=== PATIENT | male | born 1970 | race Two or more races ===

== ENCOUNTER 2019-12-17 08:56 | Outpatient (CLI) | payer OTHER | END 2019-12-17 09:06 | disposition home or self-care (01) | LOC: RAD 08:56 | PROVIDERS: ATTEND Orthopaedic Surgery | DX: M25.561 Pain in right knee (principal); M25.562 Pain in left knee ==

== ENCOUNTER 2020-01-13 10:47 | Outpatient (CLI) | payer OTHER | END 2020-01-13 11:13 | disposition home or self-care (01) | LOC: MRI 10:47 | PROVIDERS: ATTEND Orthopaedic Surgery | DX: M17.11 Unilateral primary osteoarthritis, right knee (principal); M23.91 Unspecified internal derangement of right knee | CPT/HCPCS: 73718 ==

== ENCOUNTER 2020-01-29 06:42 | Outpatient (CLI) | payer OTHER | END 2020-01-29 07:21 | disposition home or self-care (01) | LOC: LAB 06:42 | PROVIDERS: ATTEND Orthopaedic Surgery | DX: D64.89 Other specified anemias (principal); E88.89 Other specified metabolic disorders; D68.8 Other specified coagulation defects; N39.0 Urinary tract infection, site not specified; Z22.322 Carrier or suspected carrier of Methicillin resistant Staphylococcus aureus; Z76.89 Persons encountering health services in other specified circumstances; I10 Essential (primary) hypertension; I49.8 Other specified cardiac arrhythmias ==

== ENCOUNTER 2020-02-20 09:45 | Day surgery (SDC) | payer OTHER | END 2020-02-20 20:45 | disposition home or self-care (01) | LOC: CIR.AMB 09:45 | PROVIDERS: ATTEND Orthopaedic Surgery | DX: M23.321 Other meniscus derangements, posterior horn of medial meniscus, right knee (principal); M24.561 Contracture, right knee; Z20.828 Contact with and (suspected) exposure to other viral communicable diseases ==